=== PATIENT | male | born 1990 | race Caucasian/White ===

== ENCOUNTER 2017-06-20 17:39 | Emergency (ER) | payer BC ==
[2017-06-20 17:56] VITALS: BP 152/89
[2017-06-20] MEDS ORDERED: Lidocaine 2% 10 ML* VIAL INJ ONE (19:16)
--- NOTE | 2017-06-20 19:17 | ED ---
Skin Complaint - HPI Summary HPI Summary: 26 male presents to ED with complaints of right middle finger pain, warmth, redness and swelling that began 2 days ago and has worsened today. Patient does not know of any trauma or open sores however does work with his hands and they are constantly getting wounded and dirty. States he attempted to drain wound with a needle but had little success. States immunizations are UTD as far to his knowledge. Denies fever/chills, red streaking and drainage from finger. Has not taken any medication. Denies any other PMHx. No other complaints. Right hand dominant. No numbness or tingling. No history of MRSA. 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 Associated Signs & Symptoms: Negative Related History: Trauma - possible - Allergy/Home Medications Allergies/Adverse Reactions: Allergies Allergy/AdvReac Type Severity Reaction Status Date / Time No Known Allergies Allergy Verified 06/20/17 17:56 PMH/Surg Hx/FS Hx/Imm Hx Endocrine/Hematology History: Denies: Hx Anticoagulant Therapy, Hx Diabetes Cardiovascular History: Denies: Hx Hypertension Respiratory History: Denies: Hx Asthma - Surgical History Surgery Procedure, Year, and Place: n/a - Immunization History Date of Tetanus Vaccine: UTD Date of Influenza Vaccine: NO Immunizations Up to Date: Yes Infectious Disease History: No Infectious Disease History: Denies: Traveled Outside the [place] in Last 30 Days - Family History Known Family History: Positive: None - Social History Alcohol Use: Weekly Substance Use Type: Reports: None Smoking Status (MU): Current Every Day Smoker Review of Systems Constitutional: Negative Cardiovascular: Negative Respiratory: Negative Positive: Other - swelling, redness and pain to right distal middle finger Neurological: Negative All Other Systems Reviewed And Are Negative: Yes Physical Exam Triage Information Reviewed: Yes Vital Signs On Initial Exam: Initial Vitals Temp Pulse Resp BP Pulse Ox 97.4 F 86 16 152/89 98 06/20/17 17:52 06/20/17 17:52 06/20/17 17:52 06/20/17 17:52 06/20/17 17:52 Vital Signs Reviewed: Yes Appearance: Positive: Well-Appearing, No Pain Distress, Well-Nourished Skin: Positive: Warm, Skin Color Reflects Adequate Perfusion, Dry, Erythema @ - distal tip of right middle finger along nail fold, without nail involvement. hands b/l stained with grease/contaminated "Worker's hands". fluctuance, warmth , edematous and tender to palpation. no red streaking, rest of skin exam normal. without drainage and FB. Negative: Cold, Cyanosis @, Pale Head/Face: Positive: Normal Head/Face Inspection Eyes: Positive: Conjunctiva Clear ENT: Positive: Pharynx normal Respiratory/Lung Sounds: Positive: Clear to Auscultation, Breath Sounds Present. Negative: Rales, Rhonchi, Wheezes Cardiovascular: Positive: Normal, RRR, Pulses are Symmetrical in both Upper and Lower Extremities - 2+ radial. Negative: Murmur, Rub Musculoskeletal: Positive: Normal, Strength/ROM Intact. Negative: Limited @, Interruption @, Abnormal @, Pain @ Neurological: Positive: Normal, Sensory/Motor Intact, Alert, Oriented to Person Place, Time, NV Bundle Intact Distally - [place] Coma Scale Coma Scale Total: 15 Procedures - Incision and Drainage Site: right distal middle finger at nail fold Anesthesia: Digital - right middle finger 2% lido without epi Instrument(s): Scalpel - 11 blade Packing: Other - none due to it being a paronchyia draingage at nail fold Diagnostics - Vital Signs Vital Signs Temp Pulse Resp BP Pulse Ox 06/20/17 17:52 97.4 F 86 16 152/89 98 - Laboratory Lab Statement: Any lab studies that have been ordered have been reviewed, and results considered in the medical decision making process. Course/Dx - Course Course Of Treatment: Appears to be suffering from a paronchyia due to PE findings and HPI. I&D was preformed with success and drainage. Fluid appeared clear/yellow and purulent. Was culutred, pending results. Patient denies MRSA history. I&D was uncomplicated and using sterile procedure. Dressed with telfa and kerlfex with trile antibiotic ointment after procedure. Finger was first soaked with hiba cleanse and normal saline. Patient tolerated procedure well. Will give Bactrim and gentamicin topcial. Warm soaks, keep clean and dry, and covered. Tetanus and immz UTD. No concern for other emergent etiology at this time. Patient is aware of worsening signs and symptoms to watch out for. Follow up with PCP for re-check in 5-7 days. - Differential Diagnoses - Skin Complaint Differential Diagnoses: Abscess, Cellulitis, Other - paronychia - Diagnoses Provider Diagnoses: Paronychia of finger of right hand Discharge - Discharge Plan Condition: Stable Disposition: HOME Prescriptions: Gentamicin 0.1% OINTMENT* 1 applic TOPICAL TID #1 tube Sulfamethox/Trimethoprim DS* [Bactrim DS 800/160 TAB*] 1 tab PO BID #14 tab Patient Education Materials: Paronychia (ED) Referrals: Min STANLEY,Morris Mccollum [Primary Care Provider] - Additional Instructions: Take prescribed medication as directed. Apply topical triple anitbiotic cream as directed. Continue warm soaks. Keep clean, dry and covered when working. Any new or worsening symptoms please seek medical attention. Follow up with PCP. You will hear about culture results if positive.
[2017-06-20] MEDS ORDERED: Lidocaine 2% PF * 5 ML VIAL ONE (19:29)
--- NOTE | 2017-06-22 08:54 | PN ---
Progress Note - Progress Note Date of Service: 06/22/17 Note: Preliminary wound culture grew E coli. patient placed on bactrim so will wait for final sensitive.
--- NOTE | 2017-06-23 08:31 | ED ---
Progress - Progress Note Progress Note: E. coli organism from hand cx sensitive to bactrim. No change at this time. Course/Dx - Course Course Of Treatment: Appears to be suffering from a paronchyia due to PE findings and HPI. I&D was preformed with success and drainage. Fluid appeared clear/yellow and purulent. Was culutred, pending results. Patient denies MRSA history. I&D was uncomplicated and using sterile procedure. Dressed with telfa and kerlfex with trile antibiotic ointment after procedure. Finger was first soaked with hiba cleanse and normal saline. Patient tolerated procedure well. Will give Bactrim and gentamicin topcial. Warm soaks, keep clean and dry, and covered. Tetanus and immz UTD. No concern for other emergent etiology at this time. Patient is aware of worsening signs and symptoms to watch out for. Follow up with PCP for re-check in 5-7 days. - Diagnoses Provider Diagnoses: Paronychia of finger of right hand
== END 2017-06-20 20:22 | disposition home or self-care (01) ==
LOC: ED 17:39
DX: L03.011 Cellulitis of right finger (principal); F17.210 Nicotine dependence, cigarettes, uncomplicated
CPT/HCPCS: 10060; 87070; 87077; 87186; 87205; 87640; 87641; 99281